=== PATIENT | female | born 2000 | race Caucasian/White ===

== ENCOUNTER 2021-07-16 01:12 | Emergency (ER) | payer OTHER ==
[~2021-07-16 01:12] MED LIST: BUTALB-ACETAMI1 EACH PO; CYCLOBENZAPRINE5 MG PO; FIORICET PO; ZOFRAN ODT 4 MG4 MG PO
[2021-07-16 02:03] LABS: HEMOGLOBIN 16.4 gm/dl (12.3-15.3); RED BLOOD COUNT 5.59 M/UL (4.00-5.10); WHITE BLOOD COUNT 15.7 K/UL (4.5-11.0)
[2021-07-16 02:26] LABS: BUN/CREATININE RATIO 12 (0-10)
[2021-07-16] MEDS ORDERED: IBUPROFEN600 MG PO (03:37)
== END 2021-07-16 04:10 | disposition home or self-care (01) ==
LOC: ER1 01:12
PROVIDERS: Nurse Practitioner
DX: M54.50 Low back pain, unspecified (principal); Z86.73 Personal history of transient ischemic attack (TIA), and cerebral infarction without residual deficits; W06.XXXA Fall from bed, initial encounter
CPT/HCPCS: 72125; 72131; 80053; 81001; 84703; 85025; 85652; 86140; 93005; 96374; 99284; J1885